=== PATIENT | female | born 1985 | race Hispanic/Latino ===

== ENCOUNTER 2023-08-31 06:23 | Day surgery (SDC) | payer OTHER ==
[2023-08-29 13:02] LABS: BASOPHILS # (AUTO) 0.09 K/uL (0.00-0.20); BASOPHILS % (AUTO) 1.1 % (0.0-5.0); EOSINOPHILS # (AUTO) 0.21 K/uL (0.00-0.70); EOSINOPHILS % (AUTO) 2.6 % (0.0-8.0); HEMATOCRIT 38.9 % (36-48); IMMATURE GRANULOCYTE ABSOLUTE 0.02 K/uL (0-1); LYMPHOCYTES # (AUTO) 1.6 K/uL (1.0-4.8); LYMPHOCYTES % (AUTO) 19.3 % (21.0-51.0); MEAN CORPUSCULAR HEMOGLOBIN 28.2 pg (27.0-33.0); MEAN CORPUSCULAR HGB CONC 32.6 g/dL (32.0-36.0); MEAN CORPUSCULAR VOLUME 86.3 fL (79-99); MONOCYTES # (AUTO) 0.6 K/uL (0.1-1.0); MONOCYTES % (AUTO) 7.2 % (3.0-13.0); NEUTROPHILS # (AUTO) 5.7 K/uL (1.8-7.7); NEUTROPHILS % (AUTO) 69.6 % (40.0-77.0); PLATELET COUNT (AUTO) 280 K/uL (130-400); RED BLOOD CELL COUNT(AUTO) 4.51 MIL/uL (4.00-5.50); RED CELL DISTRIBUTION WIDTH 12.5 % (11.0-15.5); WHITE BLOOD COUNT (AUTO) 8.2 K/uL (4.8-10.8)
[2023-08-29 13:18] LABS: ALBUMIN 3.3 g/dL (3.5-5.0); BILIRUBIN,DIRECT 0.1 mg/dL (0.0-0.3); BILIRUBIN,TOTAL 0.3 mg/dL (0.2-1.0); CREATININE 0.7 mg/dL (0.5-1.0); POTASSIUM 4.3 mmol/L (3.5-5.1)
[2023-08-29 13:38] VITALS: BP 142/90; PULSE 81; RESP 16
[~2023-08-31] VITALS: Ht 177.8 cm; Wt 117.1 kg
[2023-08-31] VITALS (16 sets, daily range): BP systolic 116–138; BP diastolic 69–83; PULSE 61–95; RESP 15–20
[~2023-08-31 06:23] MED LIST: CETI10TA57 PO; FERR-82 PO; VITAD50000 PO; [UNRECOGNIZED DRUG - REMARK] PO
[2023-08-31] MEDS: LACTATED RINGERS 1000ML 1,000 ML IV ONE (07:08)
[2023-08-31] MEDS ORDERED: FAMOTIDINE 20MG VIAL IV ONE (07:25)
[2023-08-31] MEDS ORDERED: GLYCOPYRROLATE 0.2 MG/ML 5 ML VIAL ONE (07:27)
[2023-08-31] MEDS ORDERED: ONDANSETRON 4MG INJ ONE ×2 (07:27→08:21)
[2023-08-31] MEDS ORDERED: PHENYLEPHRINE HCL 10 MG/ML 1ML VIAL IV ONE (07:27)
[2023-08-31] MEDS ORDERED: ROCURONIUM BROMIDE 10MG/1ML 5ML VL ONE (07:27)
[2023-08-31] MEDS ORDERED: LIDOCAINE PF 100MG/5ML (2%) SYRINGE 5ML ONE ×2 (07:27→07:34)
[2023-08-31] MEDS ORDERED: PROPOFOL 10 MG/ML 20ML VIAL IV ONE (07:27)
[2023-08-31] MEDS ORDERED: FENTANYL CITRATE PF 50 MCG/1 ML 5ML AMP IV ONE (07:28)
[2023-08-31] MEDS ORDERED: MIDAZOLAM HCL 1 MG/ML 2ML VIAL ONE (07:34)
[2023-08-31] MEDS: ONDANSETRON 4MG INJ ONE (09:13)
[2023-08-31] MEDS: MEPERIDINE-PF 25 MG/ML SYG ONE (09:14)
== END 2023-08-31 10:35 | disposition home or self-care (01) ==
LOC: DAH 06:23
PROVIDERS: ATTEND Obstetrics & Gynecology
DX: Z30.433 Encounter for removal and reinsertion of intrauterine contraceptive device (principal); N93.8 Other specified abnormal uterine and vaginal bleeding; N84.0 Polyp of corpus uteri; D25.9 Leiomyoma of uterus, unspecified; F41.9 Anxiety disorder, unspecified; Z79.899 Other long term (current) drug therapy; Z82.49 Family history of ischemic heart disease and other diseases of the circulatory system; Z83.3 Family history of diabetes mellitus; Z80.6 Family history of leukemia; Z98.890 Other specified postprocedural states
CPT/HCPCS: 80076; 80048; 84703; 85025; 36415; 58301; 58300; 58558; 88305; A4663; J7120 ×2; A4351; A4355; J3490 ×3; J3010; J2001 ×2; J2250; J2704; J2405 ×3; J2175; J2371; A4649; A4215; A4223; A4222; A4221; A4335

== ENCOUNTER 2024-02-28 12:24 | Inpatient (IN) | payer SELFPAY ==
[~2024-02-28] VITALS: Ht 177.8 cm; Wt 120.3 kg
[2024-02-28 13:11] LABS: BASOPHILS # (AUTO) 0.04 K/uL (0.00-0.20); BASOPHILS % (AUTO) 0.5 % (0.0-5.0); EOSINOPHILS # (AUTO) 0.16 K/uL (0.00-0.70); IMMATURE GRANULOCYTE ABSOLUTE 0.08 K/uL (0-1); LYMPHOCYTES # (AUTO) 1.1 K/uL (1.0-4.8); LYMPHOCYTES % (AUTO) 13.4 % (21.0-51.0); MEAN CORPUSCULAR HEMOGLOBIN 30.6 pg (27.0-33.0); MEAN CORPUSCULAR HGB CONC 29.2 g/dL (32.0-36.0); MEAN CORPUSCULAR VOLUME 104.8 fL (79-99); MONOCYTES # (AUTO) 0.5 K/uL (0.1-1.0); MONOCYTES % (AUTO) 5.6 % (3.0-13.0); NEUTROPHILS # (AUTO) 6.2 K/uL (1.8-7.7); NEUTROPHILS % (AUTO) 77.5 % (40.0-77.0); NUCLEATED RED BLOOD CELLS 0.4 % (0.0-0.19); PLATELET COUNT (AUTO) 251 K/uL (130-400); RED BLOOD CELL COUNT(AUTO) 1.86 MIL/uL (4.00-5.50); RED CELL DISTRIBUTION WIDTH 19.8 % (11.0-15.5); WHITE BLOOD COUNT (AUTO) 8.1 K/uL (4.8-10.8)
[2024-02-28 13:19] LABS: CREATININE 0.6 mg/dL (0.5-1.0); POTASSIUM 4.4 mmol/L (3.5-5.1)
[2024-02-28 13:20] LABS: HEMATOCRIT 19.5 % (36-48)
--- NOTE | 2024-02-28 15:04 | ERN ---
General Chief Complaint: Abnormal Labs Stated Complaint: LOW HH Time Seen by MD: 12:28 Time Seen by Midlevel: 12:28 Source: patient History of Present Illness Initial Comments Patient is a 38-year-old female with a past medical history of menorrhagia and adenomyosis presenting to the emergency department with abnormal labs. Patient was called by her primary care doctor after her blood work results came back and showed a hemoglobin in the 5.2. Patient states she has been having vaginal bleeding for the last four weeks. She states that this is common for her given her history. She had a D&C done in the past by Dr. Salguero to try and control her symptoms however that did not improve any of her symptoms. She has a hysterectomy scheduled for March 28, [address] Salguero. Today she reports some mild generalized body weakness and fatigue but denies any chest pain, shortness for breath, palpitations, or any other symptoms at this time. Allergies: Coded Allergies: No Known Drug Allergies (Unverified Allergy, Unknown, 08/29/23) Home Meds Reported Medications Ferrous Sulfate (Iron) 325 Mg (65 Mg Iron) Tablet, 325 MG PO DAILY, TAB 08/29/23 Cholecalciferol (Vitamin D3) 1,250 Mcg (75052 Unit) Cap, 84166 UNITS PO MONDAYS, CAP 08/29/23 [Severe Channing/Cough] No Conflict Check, 20 ML PO AD PRN for COUGH 08/29/23 Cetirizine HCl (Cetirizine HCl) 10 Mg Tablet, 10 MG PO AM, TAB 08/29/23 Past Medical History Past Medical History: No Pertinent History Past Surgical History: Other Surgical History Other: D&C Female( History) LMP: Feb 05, 2024 : 0 Para: 0 ROS Dictation CONSTITUTIONAL: Negative except for HPI HEAD/FACE: Negative except for HPI EENT: Negative except for HPI RESPIRATORY: Negative except for HPI GASTROINTESTINAL/ABDOMINAL: Negative except for HPI GENITOURINARY: Negative except for HPI MUSCULOSKELETAL: Negative except for HPI INTEGUMENTARY: Negative except for HPI NEUROLOGICAL/PSYCH: Negative except for HPI HEMATOLOGIC/LYMPHATIC: Negative except for HPI All Systems Negative, Except as noted above. 13 point review of systems assessed and all negative except for above. Physical Exam Physical Exam Dictation Vital Signs reviewed General Appearance: Alert, oriented x 3, no acute distress, well developed, nourished. Head and Face: non-traumatic. Eyes: PERRL, pink conjunctivas, eyelid no trauma, anterior chamber with arcus senilis. Ears: Pinnas intact and no signs of trauma or erythema ear canals clear and no discharge TM no erythema Nose: No discharge, no bleeding. Oropharynx: Mouth normal, tongue pink, pharynx clear,no erythema, tonsils no exudates, no abscesses noted, mucous membrane moist Neck: Supple, non-tender, no thyromegaly, no masses, no JVD, no bruits Breast:Deferred Chest:No tenderness, no crepitus, no paradoxical movement, no retractions Lungs:Clear, well-ventilated, symmetric, no rales, no wheezing, no rhonchi, no stridor, good breath sounds bilaterally Heart: Regular rate, regular rhythm, no murmur, no gallops Vascular: no peripheral edema, Abdomen: Soft, positive bowel sounds, nondistended, no guarding, nontender, no rebound, no masses no hepatomegaly, no splenomegaly, no Lynn's sign, no hernias. Rectal: Deferred Genital: Deferred Neurological: Normal speech, motor function intact, sensory function intact Musculoskeletal: Neck nontender, full range of motion, back nontender, full range of motion, Extremities: nontender, full range of motion Skin: Color pink, dry, no turgor, no rash, no lacerations, no abrasions, no contusions. Lymphatic: Deferred Results Laboratory and Microbiology Lab and Micro Result Laboratory Tests Test 02/28/24 13:02 White Blood Count 8.1 K/uL (4.8-10.8) Red Blood Count 1.86 MIL/uL (4.00-5.50) L Hemoglobin 5.7 g/dL (12.0-16.0) *L Hematocrit 19.5 % (36-48) *L Mean Corpuscular Volume 104.8 fL (79-99) H Mean Corpuscular Hemoglobin 30.6 pg (27.0-33.0) Mean Corpuscular Hemoglobin Concent 29.2 g/dL (32.0-36.0) L Red Cell Distribution Width 19.8 % (11.0-15.5) H Platelet Count 251 K/uL (130-400) Mean Platelet Volume 10.3 fL (7.5-10.5) Immature Granulocyte % (Auto) 1.0 % (0-1) Neutrophils (%) (Auto) 77.5 % (40.0-77.0) H Lymphocytes (%) (Auto) 13.4 % (21.0-51.0) L Monocytes (%) (Auto) 5.6 % (3.0-13.0) Eosinophils (%) (Auto) 2.0 % (0.0-8.0) Basophils (%) (Auto) 0.5 % (0.0-5.0) Neutrophils # (Auto) 6.2 K/uL (1.8-7.7) Lymphocytes # (Auto) 1.1 K/uL (1.0-4.8) Monocytes # (Auto) 0.5 K/uL (0.1-1.0) Eosinophils # (Auto) 0.16 K/uL (0.00-0.70) Basophils # (Auto) 0.04 K/uL (0.00-0.20) Absolute Immature Granulocyte (auto 0.08 K/uL (0-1) Nucleated Red Blood Cells 0.4 % (0.0-0.19) H Red Blood Cell Morphology See comments Sodium Level 145 mmol/L (136-145) Potassium Level 4.4 mmol/L (3.5-5.1) Chloride Level 114 mmol/L (101-111) H Carbon Dioxide Level 23 mmol/L (21-32) Blood Urea Nitrogen 7 mg/dL (7-18) Creatinine 0.6 mg/dL (0.5-1.0) Glomerular Filtration Rate Calc 119 mL/min (>90) Random Glucose 101 mg/dL (70-105) Total Calcium 8.1 mg/dL (8.5-10.1) L Serum Test, Qualitative NEGATIVE (NEGATIVE) Labs Reviewed?: Yes MDM MDM: Patient is a 38-year-old female with a past medical history of menorrhagia and adenomyosis presenting to the emergency department with abnormal labs. Patient was called by her primary care doctor after her blood work results came back and showed a hemoglobin in the 5.2. Patient states she has been having vaginal bleeding for the last four weeks. She states that this is common for her given her history. She had a D&C done in the past by Dr. Salguero to try and control her symptoms however that did not improve any of her symptoms. She has a hysterectomy scheduled for March 28, [address] Salguero. Today she reports some mild generalized body weakness and fatigue but denies any chest pain, shortness for breath, palpitations, or any other symptoms at this time. On physical examination patient is neurologically intact. She has a GCS of 15. She was able to ambulate from the triage area into the examination room with no difficulties. Her CBC shows a hemoglobin of 5.7. Her chemistries are stable. Patient will be transfused2 units of blood and will be admitted for further observation and management. The case was discussed with the hospitalist on-call who agrees to admit the patient for further observation and management. Differential diagnosis: Severe anemia, electrolyte abnormality, dehydration, dysfunctional uterine bleeding Rationale: Tests considered and ordered secondary to shared decision making include: Previous outside records reviewed: Old ER visits. Risk of complication and/or morbidity or mortality of patient management: None Medications-Per medication reconciliation Need for hospitalization: Patient does meet criteria for hospitalization. Need for emergency major/minor surgery: No There are no social concerns with this patient. Prescription drug management Prescriptions will include symptomatic care Patient's prior external medical records from other ER visits were reviewed by me as indicated. Prior testing and results from previous visits were reviewed. Prior tests were taken into account with medical decision making and resource utilization, independent historian/historians were used to obtain complete medical history. I independently interpreted the test that were performed, results were reviewed by me and considered findings on radiology if ordered. Medical management and examination interpretation discussions were had by me with other qualified healthcare professionals as indicated for the patient's care. ED Course Orders Procedure Category Date Status Time Vital Signs Per CPOE 02/28/24 Transmitted Routine 12: Cbc With Differential LAB 02/28/24 Complete 12: Testing, LAB 02/28/24 Complete Serum Hcg 12: Type And Screen BBK 02/28/24 In Process 12:29 Iv Insertion CPOE 02/28/24 Transmitted 12:29 Basic Metabolic Panel LAB 02/28/24 Complete 12: Rbc-Active Bleeding BBK 02/28/24 In Process 13:41 Obstetrical Consult CONPHYSVC 02/28/24 Transmitted 14:55 Vital Signs Date Time Temp Pulse Resp B/P (MAP) Pulse Ox O2 Delivery O2 Flow Rate FiO2 02/28/24 14:29 98.4 98 18 119/72 100 Room Air* 0 21 02/28/24 14:01 98.4 89 18 139/78 97 Room Air* 0 21 02/28/24 12:25 98.8 105 20 146/86 99 Room Air 0 DX & DISP Disposition: Inpatient Decision to Admit Date: Feb 28, 2024 Departure Impression: Primary Impression: Severe anemia Additional Impression: Abnormal uterine bleeding due to adenomyosis Condition: Stable Referrals: [facility]IERRE[facility] (PCP) I have reviewed the case, and I agree with, Diagnosis and Plan I performed the substantive portion of the visit. I have reviewed and personally made and approve the management plan that is documented in the note by myself or the [facility]. I acknowledge for responsibility for the patient's management plan. RAIMUNDO CEDEÑO Feb 28, 2024 15:04
--- NOTE | 2024-02-28 15:05 | NUR ---
BLOOD TRANSFUSION INTIATED AT THIS TIME UNIT #1 OF 2.
--- NOTE | 2024-02-28 15:45 | HP ---
[facility] HISTORY AND PHYSICAL Date of Service: Feb 28, 2024 Time of Service: 15:38 PCP:Regino Nixon ART FRAMING MANAGER Admitting: Dr Treviño, Allergies: No Allergy Information Available, No Known Drug Allergies HISTORY OF PRESENT ILLNESS: [ Patient is 38 years old female with a past medical history of menorrhagia and adenomyosis who came to emergency department with abnormal labs from her PCP office. Patient stated that for the past four weeks she has been having very heavy vaginal bleed and she decided to go to her PCP yesterday were the labs were taken. Today in the morning when patient called in to PCP's office she was told that her hemoglobin was very low and they either recommend for her to go to emergency department for blood transfusion/evaluation ortho come to the office to start the iron infusion. Patient stated that since she has been having trouble breathing and she feels very dizzy and weak she decided to come to emergency department. At the emergency department patient's hemoglobin was 5.2 she will receive 2 units of PRBC She had a D&C done in the past by Dr. Salguero to try and control her symptoms however that did not improve any of her symptoms. She has a hysterectomy scheduled for March 28, [address] Salguero. Patient is also scheduled for hysterectomy March 28, 2024. Patient will be admitted under hospitalist care for further evaluation. OBGYN was consulted.] REVIEW OF SYSTEMS CONSTITUTIONAL: Denies fevers, chills, or night sweats. No unintentional weight loss reported. NEUROLOGICAL: Denies headache, amaurosis fugax, motor weakness, sensory de ficit, vertigo/spinning sensation, gait abnormalities, or tremors. ENT: No hearing loss, otalgia, otorrhea, rhinitis, rhinorrhea, hoarseness, or sore throat. CARDIOVASCULAR: Denies any exertional angina, dyspnea on exertion, orthopnea, paroxysmal nocturnal dyspnea, palpitations, life-threatening arrhythmias, claudication. PULMONARY: Denies any shortness of breath, cough, phlegm/sputum, hemoptysis, pleuritic chest pain. SLEEP: Denies morning headaches, daytime somnolence or napping. Denies difficulty falling asleep, staying asleep, waking from sleep. Denies knowledge of snoring. GASTROINTESTINAL: Denies any type of dysphagia to either liquids or solids. Denies nausea, vomiting, pyrosis, early satiety, abdominal pain, diarrhea, constipation, or changes in stool consistency or caliber. Denies coffee-ground emesis, hematemesis, hematochezia, or melanotic stools. GENITOURINARY: Denies frequency, urgency, nocturia, hematuria or incontinence (Storage/Irritative symptoms.) Low urinary stream, straining to void, urinary intermittency or hesitancy, splitting of the voiding stream, terminal dribbling. ENDOCRINOLOGIC: Denies polyuria, polydipsia, polyphagia or heat/cold intolerances. HEMATOLOGIC: Denies thrombophilia/previous clots, or coagulopathy/bleeding disorders. ONCOLOGIC: Denies personal history of malignancy. DERMATOLOGIC: Denies rashes or pruritus. PSYCHIATRIC: Denies any suicidal or homicidal ideation. Denies hallucinations. PAST MEDICAL HISTORY: [ menorrhagia and adenomyosis] PAST SURGICAL HISTORY: [ D&C August 2023] PAST SOCIAL HISTORY: [ Denies smoking. Denies alcohol use. Denies drug illicit ] FAMILY HISTORY: [ Patient lives at home with her parents. ] Coded Allergies: No Known Drug Allergies (Unverified Allergy, Unknown, 08/29/23) PHYSICAL EXAM GENERAL APPEARANCE: The patient is awake, alert, and oriented, in no acute cardiopulmonary distress. NEUROLOGICAL: Cranial nerves II-XII grossly intact. Motor is 5/5 in bilateral upper and lower extremities proximal to distal. No sensory deficits. HEENT: Face is symmetric. Pupils are equal and reactive. Extraocular movements are intact. NECK: Supple. No JVD. No thyromegaly. No submental, submandibular, pre-/postau ricular, occipital or supraclavicular lymphadenopathy. CHEST: Normal chest expansion. No Telemetry. LUNGS: Absence of any rales, rhonchi or any wheezing. CARDIOVASCULAR: Regular. S1 and S2 normal. No appreciable rubs, murmurs or gallops. ABDOMEN: Soft, nontender, and nondistended. There is no rebound, voluntary guarding, or rigidity. : Deferred. No Fonseca. EXTREMITIES: Non-edematous and not cyanotic. No clubbing. Good capillary refill. SKIN: No skin breakdown. Vital Sign (Last 24 Hours) 02/28/24 14:29 Temp 98.4 Pulse 98 Resp 18 B/P (MAP) 119/72 Pulse Ox 100 O2 Delivery Room Air* O2 Flow Rate 0 FiO2 21 LABS: Laboratory: Test 02/28/24 13:02 Range/Units White Blood Count 8.1 4.8-10.8 K/uL Red Blood Count 1.86 L 4.00-5.50 MIL/uL Hemoglobin 5.7 *L 12.0-16.0 g/dL Hematocrit 19.5 *L 36-48 % Mean Corpuscular Volume 104.8 H 79-99 fL Mean Corpuscular Hemoglobin 30.6 27.0-33.0 pg Mean Corpuscular Hemoglobin Concent 29.2 L 32.0-36.0 g/dL Red Cell Distribution Width 19.8 H 11.0-15.5 % Platelet Count 251 130-400 K/uL Mean Platelet Volume 10.3 7.5-10.5 fL Immature Granulocyte % (Auto) 1.0 0-1 % Neutrophils (%) (Auto) 77.5 H 40.0-77.0 % Lymphocytes (%) (Auto) 13.4 L 21.0-51.0 % Monocytes (%) (Auto) 5.6 3.0-13.0 % Eosinophils (%) (Auto) 2.0 0.0-8.0 % Basophils (%) (Auto) 0.5 0.0-5.0 % Neutrophils # (Auto) 6.2 1.8-7.7 K/uL Lymphocytes # (Auto) 1.1 1.0-4.8 K/uL Monocytes # (Auto) 0.5 0.1-1.0 K/uL Eosinophils # (Auto) 0.16 0.00-0.70 K/uL Basophils # (Auto) 0.04 0.00-0.20 K/uL Absolute Immature Granulocyte (auto 0.08 0-1 K/uL Nucleated Red Blood Cells 0.4 H 0.0-0.19 % Red Blood Cell Morphology See comments Sodium Level 145 136-145 mmol/L Potassium Level 4.4 3.5-5.1 mmol/L Chloride Level 114 H 101-111 mmol/L Carbon Dioxide Level 23 21-32 mmol/L Blood Urea Nitrogen 7 7-18 mg/dL Creatinine 0.6 0.5-1.0 mg/dL Glomerular Filtration Rate Calc 119 >90 mL/min Random Glucose 101 70-105 mg/dL Total Calcium 8.1 L 8.5-10.1 mg/dL Serum Test, Qualitative NEGATIVE NEGATIVE Current Medications Medications (Trade) Dose Ordered Sig/Lawrence Route PRN Reason Start Time Stop Time Status Last Admin Dose Admin Dextrose (D50w) 50 ml AD PRN IV HYPOGLYCEMIA PROTOCOL 02/28/24 16:00 03/29/24 15:59 UNV Glucagon (Glucagon 1mg Kit) 1 mg AD PRN IM HYPOGLYCEMIA PROTOCOL 02/28/24 16:00 03/29/24 15:59 UNV Insulin Human Regular (humuLIN R 100 UNIT/ML 3ML) INSULIN SLIDING SCAL... ACHS SQ 02/28/24 16:30 03/29/24 16:29 UNV Magnesium Sulfate 50 ml @ 0 mls/hr PROTOCOL PRN IV othere 02/28/24 16:00 03/29/24 15:59 UNV Potassium Chloride 100 ml @ 100 mls/hr AD PRN IV POTASSIUM PROTOCOL 02/28/24 16:00 03/29/24 15:59 UNV Potassium Chloride (K-Dur/Klor-Con 20meq) 10 meq AD PRN PO POTASSIUM PROTOCOL 02/28/24 16:00 03/29/24 15:59 UNV Potassium Chloride (KCl 10% Elixir 20meq/15ml) 10 meq AD PRN PO POTASSIUM PROTOCOL 02/28/24 16:00 03/29/24 15:59 UNV DIAGNOSTICS / RADIOLOGY: [ ] ASSESSMENT: [ Acute blood loss due to heavy menstruation bleed requiring two PRBC transfusion POA Multifactorial anemia due to above POA Electrolyte imbalance hyperchloremia 114 hypocalcemia menorrhagia POA adenomyosis POA Uncontrolled hypertension POA] PLAN: [ Admit to: Medical-surgical Consults: OBGYN Antibiotics: None IV fluids normal saline 100 mL/hour NEURO: Minimize central acting medications as possible. Fall Precautions. Well lighted room through the day and minimize interruptions through the night to prevent acute delirium. PULMONARY: Supplemental 02 as needed BiPAP as necessary, for respiratory distress Titrate Fio2 to keep Spo2 > or = 90% DuoNebs and CPT as needed IS hourly while awake for pulmonary hygiene Out of bed to chair as tolerated VAP Bundle Maintain aspiration precautions at all times CARDIOVASCULAR: Follow hemodynamics. Vital signs per facility protocol GI & NUTRITION: Continue nutritional support Aspirations precautions Prokinetic agents and laxatives as needed KIDNEYS & ELECTROLYTES: Strict monitoring of intake and output Daily weights Avoid nephrotoxic agents Monitor electrolytes and replace as needed Goal urine output of 30mL/hr or 0.5mL/kg/hr Medications to be dosed according to renal function. Avoid contrast if possible ENDOCRINE: Maintain blood glucose between 100-180 at all times. Insulin sliding scale for blood glucose management Hypoglycemia and hyperglycemia protocol in place INFECTIOUS DISEASE: Trend temperature, WBC and procalcitonin level Follow cultures, deescalate antibiotics as soon as possible. Panculture if new onset fever HEMATOLOGY & COAGULATION: Monitor H&H. Keep Hgb > 7 Transfuse 1 unit of PRBC for Hgb < 7 Transfuse 1 pack of platelets of platelets < 20, 000 Watch for any signs and symptoms of bleeding SKIN: Pressure ulcer prevention per facility protocol Specialty mattress as needed Treatment plan discussed with patient and family at the bedside Medications to be reconciled once obtained by patient and/or family and available to be reconciled in computer p.r.n. medication for pain nausea and vomiting Questions were answered We will continue to monitor the patient closely Marketing Underwriter for disposition Rehab: PT/OT GI: PPI DVT: SCD's Code Status: Full Resuscitation Disposition: TBD Prognosis: Guarded ] ADVANCED CARE PLANNING 1. Which of the following were discussed? Hospice Care - Yes / No Therapeutic options - Yes / No Advance Directives - Yes / No Other discussions - 2. Discussed with who? Patient and family member at the bedside 3. Voluntary nature of this service was explained to the patient? Yes / No 4. Amount of time spent - _ more than 35 minutes 5. Reviewed by Physician? (if this service was performed by NPP) Yes / No Patient seen and examined by me. Agree with note by ART FRAMING MANAGER SEE ADDITIONAL ORDERS PER CHART DISCUSSED WITH NURSING STAFF STEVE ROCKP Feb 28, 2024 15:45
[2024-02-28] MEDS ORDERED: DEXTROSE 50%-WATER 50 ML DISP.SYRIN IV PRN (16:00)
[2024-02-28] MEDS ORDERED: PoTASSium chl 10% ELIXIR 20MEQ 20 MEQ/15 ML UDCUP PO PRN (16:00)
[2024-02-28] MEDS ORDERED: ZOLPidem TARTrate 5 MG TAB PO PRN (16:00)
[2024-02-28] MEDS ORDERED: MAGNESIUM 2GM PREMIX 50ML 50 ML IV PRN (16:00)
[2024-02-28] MEDS ORDERED: GLUCAGON 1MG KIT 1 MG ML IM PRN (16:00)
[2024-02-28] MEDS ORDERED: hydrALAZine 20MG/ML VIAL IV PRN (16:00)
[2024-02-28] MEDS ORDERED: DiphenhydrAMINE HCL 50 MG/ML VIAL IV PRN (16:00)
[2024-02-28] MEDS ORDERED: guaiFENesin-DM 200/20MG 10ML PO PRN (16:00)
[2024-02-28] MEDS ORDERED: PoTASSium chloRIDE 20MEQ ER 20 MEQ ERTAB PO PRN (16:00)
[2024-02-28] MEDS ORDERED: MAG/ALUM/SIMETH 30 ML UDCUP PO PRN (16:00)
[2024-02-28] MEDS ORDERED: FAMOTIDINE 20MG VIAL IV PRN (16:00)
[2024-02-28] MEDS ORDERED: acetaMINOPHEN 325 MG TAB PO PRN ×3 (16:00)
[2024-02-28] MEDS ORDERED: LACTULOSE 20 GM/30 ML UDCUP PO PRN (16:00)
[2024-02-28] MEDS ORDERED: ondanSETRON 4MG INJ IV PRN (16:00)
[2024-02-28] MEDS ORDERED: ketOROlac 15MG/ML VIAL (15MG/ML) IV PRN (16:00)
[2024-02-28] MEDS ORDERED: NITROGLYCERIN 0.4 MG SL TAB SL PRN (16:00)
[2024-02-28] MEDS ORDERED: PoTASSium chloRIDE 10MEQ/100ML 100 ML IV PRN (16:00)
[2024-02-28] MEDS: INSULIN humuLIN R 100 UNIT/ML 3ML SQ SCH (16:30)
--- NOTE | 2024-02-28 16:42 | NUR ---
1ST UNIT OF RBC COMPLETED AT THIS TIME.
[2024-02-28] MEDS: 0.9%NACL 1000ML 1,000 ML IV SCH (16:48)
[2024-02-28 17:33] LABS: % IRON SATURATION 24.7 % (22-44)
--- NOTE | 2024-02-28 18:15 | NUR ---
2ND UNIT OF RBC TRANFUSION INTITATED AT THIS TIME.
[2024-02-28] MEDS: FAMOTIDINE 20MG VIAL IV SCH (21:17)
[2024-02-28] MEDS ORDERED: IBUP-2784 PO (23:46)
[2024-02-28] MEDS ORDERED: NORE5TAB7 PO (23:46)
[2024-02-28] MEDS ORDERED: RELU1TAB PO (23:46)
--- NOTE | 2024-02-28 23:51 | NUR ---
REPORT GIVEN TO NURSE GOODE, ALL QUESTIONS ANSWERED AT THIS TIME. NURSE EXPECTING PT ARRIVAL TO UNIT.
[2024-02-29] VITALS: O2SAT 98
--- NOTE | 2024-02-29 00:01 | NUR ---
patient arrived via stretcher, [id number], iv patent, voiced no concerns at this time
[2024-02-29 00:04] VITALS: BP 168/78; PULSE 99; RESP 18; TEMP 98.8
[2024-02-29 04:00] VITALS: BP 122/69; PULSE 86; RESP 17; TEMP 98.6
[2024-02-29 04:24] LABS: BASOPHILS # (AUTO) 0.05 K/uL (0.00-0.20); BASOPHILS % (AUTO) 0.5 % (0.0-5.0); EOSINOPHILS # (AUTO) 0.29 K/uL (0.00-0.70); EOSINOPHILS % (AUTO) 3.2 % (0.0-8.0); HEMATOCRIT 23.7 % (36-48); IMMATURE GRANULOCYTE ABSOLUTE 0.05 K/uL (0-1); LYMPHOCYTES # (AUTO) 1.7 K/uL (1.0-4.8); LYMPHOCYTES % (AUTO) 18.4 % (21.0-51.0); MEAN CORPUSCULAR HEMOGLOBIN 30.7 pg (27.0-33.0); MEAN CORPUSCULAR HGB CONC 30.8 g/dL (32.0-36.0); MEAN CORPUSCULAR VOLUME 99.6 fL (79-99); MONOCYTES # (AUTO) 0.5 K/uL (0.1-1.0); MONOCYTES % (AUTO) 5.3 % (3.0-13.0); NEUTROPHILS # (AUTO) 6.6 K/uL (1.8-7.7); NEUTROPHILS % (AUTO) 72.1 % (40.0-77.0); NUCLEATED RED BLOOD CELLS 0.2 % (0.0-0.19); PLATELET COUNT (AUTO) 229 K/uL (130-400); RED BLOOD CELL COUNT(AUTO) 2.38 MIL/uL (4.00-5.50); RED CELL DISTRIBUTION WIDTH 19.6 % (11.0-15.5); WHITE BLOOD COUNT (AUTO) 9.1 K/uL (4.8-10.8)
[2024-02-29 04:39] LABS: ALANINE AMINOTRANSFERASE 35 U/L (12-78); ALBUMIN 2.6 g/dL (3.5-5.0); ASPARTATE AMINOTRANSFERASE 15 U/L (10-37); BILIRUBIN,DIRECT < 0.1 mg/dL (0.0-0.3); BILIRUBIN,TOTAL 0.2 mg/dL (0.2-1.0); CARBON DIOXIDE 21 mmol/L (21-32); CHLORIDE 113 mmol/L (101-111); CREATINE KINASE, TOTAL 70 U/L (21-232); CREATININE 0.7 mg/dL (0.5-1.0); GLOMERULAR FILTR. RATE CALC 115 mL/min (>90); GLUCOSE,RANDOM 87 mg/dL (70-105); POTASSIUM 4.3 mmol/L (3.5-5.1); SODIUM SERUM 145 mmol/L (136-145); TOTAL PROTEIN, SERUM 5.8 g/dL (6.0-8.3); UREA NITROGEN, BLOOD 7 mg/dL (7-18)
--- NOTE | 2024-02-29 05:19 | NUR ---
PATIENT REPORTS HAVING PASSED MULTIPLE BLOOD CLOTS,VAGINALLY
[2024-02-29 05:20] LABS: HEMOGLOBIN A1C 4.7 % (4.0-6.0)
--- NOTE | 2024-02-29 08:20 | NUR ---
WRITTEN ORDER: PER WRITTEN ORDER ON A BLANK SHEET OF PRINTING PAPER, PT WILL RECEIVE PRBC'S X1 UNIT THEN CHECK CMP, CBC & MAG IN TWO HOURS, ALSO RESTART HOME MEDS LISTED IN CHART: NORETHINDRONE & RELUGOLIX/ESTRADIOL/NORETHINDRONE COMBINATION. MD ALSO ORDER TO CALL & INFORM WITH ANY ISSUES, PH NOTED IN CHART.
[2024-02-29 08:31] VITALS: BP 121/60; PULSE 84; RESP 19; TEMP 99.3
[2024-02-29] MEDS: NORETHINDRONE ACETATE PO SCH (09:00)
--- NOTE | 2024-02-29 09:50 | NUR ---
AM MEDS: AM HOME MEDICATIONS ADMINISTER, PT TOLERATED WELL PROCEDURE. ALSO ADMINISTER PRBCS PER MD ORDER PT TOLERATED WELL PROCEDURE. NO S/S OF INFECTION. WILL REMOVE IV ON RIGHT HAND DUE TO IV LEAKING, AND PT WILL BE DISCHARGE TODAY.
--- NOTE | 2024-02-29 10:24 | CONS ---
CONSULT NOTE: DATE: February CONSULTATION NOTE GYNECOLOGY THIS IS A 38 YEAR OLD FEMALE WITH MENORRHAGIA TO ANEMIA WHO HAD HAD CHRONIC BLEEDING AND WAS FOUND TO HAVE A HEMOGLOBIN OF ABOUT 5.5. SHE WAS OFFERED IN OFFICE VENOFER INFUSION AND SHE DECIDED TO GO TO THE ER. SHE WAS ADMITTED AND TRANSFUSED TWO UNITS OF BLOOD, SHE HAD SOME MODERATELY HEAVY BLEEDING OVERNIGHT. SHE WAS NOT GIVEN HER HOME MEDS OF NORETHINDRONE 5 MG THREE TABS OR THE MYFEMBREE SHE HAD BEEN PRESCRIBED. THIS MORNING SHE SAYS SHE HAS LESS BLEEDING AND HER HB IS ABOUT 7.4. PMH; BONE MARROW DONOR AND PER THE CHART [facility] NONCONTRIBUTORY MEDICATIONS IRON, VITAMIN C, NORETHINDRONE, MYFEMBREE ALLERGIES SEE THE CHART PEX VITALS PER THE CHART GENERAL SHE IS ALERT AND ORIENTED SITTING UP IN THE BED REMAINDER OF EXAM IS DEFERRED ASSESSMENT: KNOWN PATIENT WITH CHRONIC MENORRHAGIA JUST HAVING STARTED MYFEMBREE AND CONTINUING TO USE NORETHINDRONE. RECOMMEND ONE ADDITIONAL UNIT OF RED BLOOD CELLS SINCE THE PATIENT HAS NOT COMPLETELY STOPPED BLEEDING. RECOMMEND STAT DOSAGE OFTHE MEDICATIONS SHE MISSED YESTERDAY. ONCE SHE HAS HAD HER TRANSFUSION AND A REPEAT CBC, SO LONG SHE IS NOT BLEEDING HEAVILY SHE CAN BE DISMISSED TO HOME TO FOLLOW UP WITH ME LATER IN THE WEEK, SHE IS TO CONTINUE NORETHINDRONE 5 MG THREE PER DAY AND MYFEMBREE ONCE PER DAY. I HAVE DISCUSSED THIS PLAN WITH THE PATIENT AND SHE IS IN AGREEMENT. CHRISTO MACHADO MD, MD Feb 29, 2024 10:24
--- NOTE | 2024-02-29 10:55 | PN ---
[facility] PROGRESS NOTE Date of Service: Feb 29, 2024 Time of Service: 10:[address] Treviño SUBJECTIVE: [ 02/27 Patient is 38 years old female with a past medical history of menorrhagia and adenomyosis who came to emergency department with abnormal labs from her PCP office. Patient stated that for the past four weeks she has been having very heavy vaginal bleed and she decided to go to her PCP yesterday were the labs were taken. Today in the morning when patient called in to PCP's office she was told that her hemoglobin was very low and they either recommend for her to go to emergency department for blood transfusion/evaluation ortho come to the office to start the iron infusion. Patient stated that since she has been having trouble breathing and she feels very dizzy and weak she decided to come to emergency department. At the emergency department patient's hemoglobin was 5.2 she will receive 2 units of PRBC She had a D&C done in the past by Dr. Salguero to try and control her symptoms however that did not improve any of her symptoms. She has a hysterectomy scheduled for March 28, [address] Salguero. Patient is also scheduled for hysterectomy March 28, 2024. Patient will be admitted under hospitalist care for further evaluation. OBGYN was consulted. 02/28 patient was seen by nurse practitioner and physician during rounding in room 313 comfortably lying in the bed. Patient was evaluated by OBGYN and at this moment they recommended one PRBC and also to start patient on NORETHINDRONE 5 MG THREE PER DAY AND MYFEMBREE ONCE PER DAY. As long as the patient will not be bleeding heavily she can be dismissed to go home and follow-up with OBGYN later in the week. We will continue to monitor patient in the meantime. A.m. labs. Anticipated discharge within 24 hours.] REVIEW OF SYSTEMS CONSTITUTIONAL: Denies fevers, chills, or night sweats. No unintentional weight loss reported. NEUROLOGICAL: Denies headache, amaurosis fugax, motor weakness, sensory deficit, vertigo/spinning sensation, gait abnormalities, or tremors. ENT: No hearing loss, otalgia, otorrhea, rhinitis, rhinorrhea, hoarseness, or sore throat. CARDIOVASCULAR: Denies any exertional angina, dyspnea on exertion, orthopnea, paroxysmal nocturnal dyspnea, palpitations, life-threatening arrhythmias, claudication. PULMONARY: Denies any shortness of breath, cough, phlegm/sputum, hemoptysis, pleuritic chest pain. SLEEP: Denies morning headaches, daytime somnolence or napping. Denies difficulty falling asleep, staying asleep, waking from sleep. Denies knowledge of snoring. GASTROINTESTINAL: Denies any type of dysphagia to either liquids or solids. Denies nausea, vomiting, pyrosis, early satiety, abdominal pain, diarrhea, constipation, or changes in stool consistency or caliber. Denies coffee-ground emesis, hematemesis, hematochezia, or melanotic stools. GENITOURINARY: Denies frequency, urgency, nocturia, hematuria or incontinence (Storage/Irritative symptoms.) Low urinary stream, straining to void, urinary intermittency or hesitancy, splitting of the voiding stream, terminal dribbling. ENDOCRINOLOGIC: Denies polyuria, polydipsia, polyphagia or heat/cold intolerances. HEMATOLOGIC: Denies thrombophilia/previous clots, or coagulopathy/bleeding disorders. ONCOLOGIC: Denies personal history of malignancy. DERMATOLOGIC: Denies rashes or pruritus. PSYCHIATRIC: Denies any suicidal or homicidal ideation. Denies hallucinations. PHYSICAL EXAM GENERAL APPEARANCE: The patient is awake, alert, and oriented, in no acute cardiopulmonary distress. NEUROLOGICAL: Cranial nerves II-XII grossly intact. Motor is 5/5 in bilateral upper and lower extremities proximal to distal. No sensory deficits. HEENT: Face is symmetric. Pupils are equal and reactive. Extraocular movements are intact. NECK: Supple. No JVD. No thyromegaly. No submental, submandibular, pre- /postauricular, occipital or supraclavicular lymphadenopathy. CHEST: Normal chest expansion. No Telemetry. LUNGS: Absence of any rales, rhonchi or any wheezing. CARDIOVASCULAR: Regular. S1 and S2 normal. No appreciable rubs, murmurs or gallops. ABDOMEN: Soft, nontender, and nondistended. There is no rebound, voluntary guarding, or rigidity. : Deferred. No Fonseca. EXTREMITIES: Non-edematous and not cyanotic. No clubbing. Good capillary refill. SKIN: No skin breakdown. Vital Signs (last 8hr) Date Time Temp Pulse Resp B/P (MAP) Pulse Ox O2 Delivery O2 Flow Rate FiO2 02/29/24 08:31 99.3 84 19 121/60 100 02/29/24 04:00 98.6 86 17 122/69 90 Room Air LABS: Laboratory: Test 02/29/24 05:21 02/29/24 04:10 02/28/24 13:02 Range/Units Whole Blood Glucose 76 70-110 MG/DL White Blood Count 9.1 4.8-10.8 K/uL Red Blood Count 2.38 #L 4.00-5.50 MIL/uL Hemoglobin 7.3 #L 12.0-16.0 g/dL Hematocrit 23.7 #L 36-48 % Mean Corpuscular Volume 99.6 H 79-99 fL Mean Corpuscular Hemoglobin 30.7 27.0-33.0 pg Mean Corpuscular Hemoglobin Concent 30.8 L 32.0-36.0 g/dL Red Cell Distribution Width 19.6 H 11.0-15.5 % Platelet Count 229 130-400 K/uL Mean Platelet Volume 10.8 H 7.5-10.5 fL Immature Granulocyte % (Auto) 0.5 0-1 % Neutrophils (%) (Auto) 72.1 40.0-77.0 % Lymphocytes (%) (Auto) 18.4 L 21.0-51.0 % Monocytes (%) (Auto) 5.3 3.0-13.0 % Eosinophils (%) (Auto) 3.2 0.0-8.0 % Basophils (%) (Auto) 0.5 0.0-5.0 % Neutrophils # (Auto) 6.6 1.8-7.7 K/uL Lymphocytes # (Auto) 1.7 1.0-4.8 K/uL Monocytes # (Auto) 0.5 0.1-1.0 K/uL Eosinophils # (Auto) 0.29 0.00-0.70 K/uL Basophils # (Auto) 0.05 0.00-0.20 K/uL Absolute Immature Granulocyte (auto 0.05 0-1 K/uL Nucleated Red Blood Cells 0.2 H 0.0-0.19 % Sodium Level 145 136-145 mmol/L Potassium Level 4.3 3.5-5.1 mmol/L Chloride Level 113 H 101-111 mmol/L Carbon Dioxide Level 21 21-32 mmol/L Blood Urea Nitrogen 7 7-18 mg/dL Creatinine 0.7 0.5-1.0 mg/dL Glomerular Filtration Rate Calc 115 >90 mL/min Random Glucose 87 70-105 mg/dL Hemoglobin A1c 4.7 4.0-6.0 % Estimated Average Glucose (eAG) 88 70-126 mg/dL Lactic Acid Level 1.1 0.8-2.5 mmol/L Total Calcium 7.8 L 8.5-10.1 mg/dL Magnesium Level 2.10 1.80-2.40 mg/dL Total Bilirubin 0.2 0.2-1.0 mg/dL Direct Bilirubin < 0.1 0.0-0.3 mg/dL Aspartate Amino Transf (AST/SGOT) 15 10-37 U/L Alanine Aminotransferase (ALT/SGPT) 35 12-78 U/L Alkaline Phosphatase 51 50-136 U/L Total Creatine Kinase 70 21-232 U/L B-Type Natriuretic Peptide 90 0-100 pg/mL Total Protein 5.8 L 6.0-8.3 g/dL Albumin 2.6 L 3.5-5.0 g/dL Procalcitonin < 0.05 L 0.05-0.5 ng/mL Red Blood Cell Morphology See comments Iron Level 99 50-170 mcg/dL Total Iron Binding Capacity 400 250-450 mcg/dL Percent Iron Saturation 24.7 22-44 % Serum Test, Qualitative NEGATIVE NEGATIVE Current Medications Medications (Trade) Dose Ordered Sig/[place]rence Route PRN Reason Start Time Stop Time Status Last Admin Dose Admin Acetaminophen (TYLenol 325MG TAB) 650 mg Q4H PRN PO MILD PAIN (1-3) 02/28/24 16:00 02/28/24 15:42 DC Acetaminophen (TYLenol 325MG TAB) 650 mg Q6H PRN PO MILD PAIN (1-3) 02/28/24 16:00 03/29/24 15:59 Acetaminophen (TYLenol 325MG TAB) 650 mg Q6H PRN PO TEMPERATURE GREATER THAN 101.5 02/28/24 16:00 03/29/24 15:59 Al Hydroxide/Mg Hydroxide (MAALox PLUS 30ML) 30 ml Q6H PRN PO INDIGESTION 02/28/24 16:00 03/29/24 15:59 Dextrose (D50w) 50 ml AD PRN IV HYPOGLYCEMIA PROTOCOL 02/28/24 16:00 03/29/24 15:59 Diphenhydramine HCl (BENAdryl INJ) 25 mg Q6H PRN IV SEVERE ITCHING/RASH 02/28/24 16:00 03/29/24 15:59 Famotidine (Pepcid 20mg Vial) 20 mg BID IV 02/28/24 21:00 03/29/24 20:59 02/29/24 09:32 20 MG Famotidine (Pepcid 20mg Vial) 20 mg BID PRN IV NAUSEA/VOMITING 02/28/24 16:00 02/28/24 15:42 DC Glucagon (Glucagon 1mg Kit) 1 mg AD PRN IM HYPOGLYCEMIA PROTOCOL 02/28/24 16:00 03/29/24 15:59 Guaifenesin/ Dextromethorphan (RobiTUSSin DM 200/20MG 10ML) 10 ml Q4H PRN PO COUGH 02/28/24 16:00 03/29/24 15:59 Home Med (Home Medication) (Norethindrone Acetate 1 TAB) TID PO 02/29/24 09:00 03/30/24 08:59 Home Med (Home Medication) (Norethindrone Acetate 1 TAB) TID PO 02/29/24 14:00 02/29/24 09:57 DC Home Med (Home Medication) (Relugolix/ Estradiol/ Norethi... DAILY PO 02/29/24 09:00 03/30/24 08:59 Home Med (Home Medication) (Relugolix/ Estradiol/ Norethi... DAILY PO 03/01/24 09:00 02/29/24 09:57 DC Hydralazine HCl (APRESOLine 20MG INJ) 10 mg Q6H PRN IV For:SBP above 160;DBP above 90 02/28/24 16:00 03/29/24 15:59 Insulin Human Regular (humuLIN R 100 UNIT/ML 3ML) INSULIN SLIDING SCAL... ACHS SQ 02/28/24 16:30 03/29/24 16:29 Ketorolac Tromethamine (toRADol) 15 mg Q8H PRN IV MODERATE PAIN (4-6) 02/28/24 16:00 03/04/24 15:59 Lactulose (Constulose 20gm/ 30ml Udcup) 20 gm BID PRN PO CONSTIPATION 02/28/24 16:00 03/29/24 15:59 Magnesium Sulfate 50 ml @ 0 mls/hr PROTOCOL PRN IV othere 02/28/24 16:00 03/29/24 15:59 Nitroglycerin (Nitrostat) 0.4 mg PROTOCOL PRN SL CHEST PAIN 02/28/24 16:00 03/29/24 15:59 Ondansetron HCl (zoFRAN 4MG INJ) 4 mg Q6H PRN IV NAUSEA/VOMITING 02/28/24 16:00 03/29/24 15:59 Potassium Chloride 100 ml @ 100 mls/hr AD PRN IV POTASSIUM PROTOCOL 02/28/24 16:00 03/29/24 15:59 Potassium Chloride (K-Dur/Klor-Con 20meq) 10 meq AD PRN PO POTASSIUM PROTOCOL 02/28/24 16:00 03/29/24 15:59 Potassium Chloride (KCl 10% Elixir 20meq/15ml) 10 meq AD PRN PO POTASSIUM PROTOCOL 02/28/24 16:00 03/29/24 15:59 Sodium Chloride 1,000 ml @ 100 mls/hr Q10H IV 02/28/24 16:00 03/29/24 15:59 02/28/24 16:48 100 MLS/HR Zolpidem Tartrate (AmbIEN) 5 mg HS PRN PO INSOMNIA 02/28/24 16:00 03/29/24 15:59 DIAGNOSTICS / RADIOLOGY: [ ] ASSESSMENT: [ Acute blood loss due to heavy menstruation bleed requiring two PRBC transfusion POA Multifactorial anemia due to above POA Electrolyte imbalance hyperchloremia 114 hypocalcemia menorrhagia POA adenomyosis POA Uncontrolled hypertension POA] PLAN: [ Admit to: Medical-surgical Consults: OBGYN Antibiotics: None IV fluids normal saline 100 mL/hour NEURO: Minimize central acting medications as possible. Fall Precautions. Well lighted room through the day and minimize interruptions through the night to prevent acute delirium. PULMONARY: Supplemental 02 as needed BiPAP as necessary, for respiratory distress Titrate Fio2 to keep Spo2 > or = 90% DuoNebs and CPT as needed IS hourly while awake for pulmonary hygiene Out of bed to chair as tolerated VAP Bundle Maintain aspiration precautions at all times CARDIOVASCULAR: Follow hemodynamics. Vital signs per facility protocol GI & NUTRITION: Continue nutritional support Aspirations precautions Prokinetic agents and laxatives as needed KIDNEYS & ELECTROLYTES: Strict monitoring of intake and output Daily weights Avoid nephrotoxic agents Monitor electrolytes and replace as needed Goal urine output of 30mL/hr or 0.5mL/kg/hr Medications to be dosed according to renal function. Avoid contrast if possible ENDOCRINE: Maintain blood glucose between 100-180 at all times. Insulin sliding scale for blood glucose management Hypoglycemia and hyperglycemia protocol in place INFECTIOUS DISEASE: Trend temperature, WBC and procalcitonin level Follow cultures, deescalate antibiotics as soon as possible. Panculture if new onset fever HEMATOLOGY & COAGULATION: Monitor H&H. Keep Hgb > 7 Transfuse 1 unit of PRBC for Hgb < 7 Transfuse 1 pack of platelets of platelets < 20, 000 Watch for any signs and symptoms of bleeding SKIN: Pressure ulcer prevention per facility protocol Specialty mattress as needed Treatment plan discussed with patient and family at the bedside Medications to be reconciled once obtained by patient and/or family and available to be reconciled in computer p.r.n. medication for pain nausea and vomiting Questions were answered We will continue to monitor the patient closely Disaster Recovery Analyst for disposition Rehab: PT/OT GI: PPI DVT: SCD's Code Status: Full Resuscitation Disposition: TBD Prognosis: Guarded ] ATTESTATION BY PHYSICIAN I have seen and examined the patient. I reviewed the documentation, medical decision making, and treatment plan as noted by the mid-level provider above. I agree with the findings and plan of care. MD PRANAV Treviño [facility] Feb 29, 2024 10:55
[2024-02-29 11:57] VITALS: BP 131/63; PULSE 79; RESP 16; TEMP 98.3
[2024-02-29] MEDS: NORETHINDRONE PO SCH (13:29)
[2024-02-29] MEDS: RELUGOLIX PO SCH (13:29)
[2024-02-29] MEDS: ESTRADIOL PO SCH (13:29)
[2024-02-29] MEDS ORDERED: NORETHINDRONE ACETATE PO SCH (14:00)
--- NOTE | 2024-02-29 14:16 | NUR ---
DCP: HOME Sw met with pt who lives at home with her parents- mother Milvia Singh [phone]. Pt reports that she is able to complete ADLS on her own, uses no DME or in home care services. PCP is Monica Nixon and uses [facility] for rx. Pt denies dc needs and will return home with parents. Addendum: 02/29/24 at 1419 by DANY PRICE Amended: Links added.
--- NOTE | 2024-02-29 14:45 | NUR ---
DISCHARGE: PER MD ORDERS PT READY TO GO HOME, PT WILL FOLLOW UP WITH PCP IN 3-5 DAYS, PT NEED TO FOLLOW UP WITH DR SHAUN MD BY , 03/07; , 03/08 OR JACEY 03/12 PER MD. PT WILL CONTINUE WITH HOME MEDS PRIOR TO HOSPITALIZATION. IV REMOVED, TIP INTACT, NO S/S OF INFECTION, PT TOLERATED PROCEDURE.
[2024-02-29 16:02] VITALS: BP 115/60; PULSE 84; RESP 18; TEMP 99
[2024-02-29 16:09] LABS: BASOPHILS # (AUTO) 0.04 K/uL (0.00-0.20); BASOPHILS % (AUTO) 0.6 % (0.0-5.0); EOSINOPHILS # (AUTO) 0.18 K/uL (0.00-0.70); EOSINOPHILS % (AUTO) 2.5 % (0.0-8.0); HEMATOCRIT 25.3 % (36-48); IMMATURE GRANULOCYTE ABSOLUTE 0.04 K/uL (0-1); LYMPHOCYTES # (AUTO) 1.2 K/uL (1.0-4.8); LYMPHOCYTES % (AUTO) 17.1 % (21.0-51.0); MEAN CORPUSCULAR HEMOGLOBIN 30.6 pg (27.0-33.0); MEAN CORPUSCULAR HGB CONC 30.4 g/dL (32.0-36.0); MEAN CORPUSCULAR VOLUME 100.4 fL (79-99); MONOCYTES # (AUTO) 0.3 K/uL (0.1-1.0); MONOCYTES % (AUTO) 4.8 % (3.0-13.0); NEUTROPHILS # (AUTO) 5.3 K/uL (1.8-7.7); NEUTROPHILS % (AUTO) 74.4 % (40.0-77.0); PLATELET COUNT (AUTO) 237 K/uL (130-400); RED BLOOD CELL COUNT(AUTO) 2.52 MIL/uL (4.00-5.50); WHITE BLOOD COUNT (AUTO) 7.2 K/uL (4.8-10.8)
[2024-02-29 16:29] LABS: ALBUMIN 2.8 g/dL (3.5-5.0); BILIRUBIN,TOTAL 0.4 mg/dL (0.2-1.0); CREATININE 0.8 mg/dL (0.5-1.0); MAGNESIUM 2.3 mg/dL (1.80-2.40); POTASSIUM 4.5 mmol/L (3.5-5.1)
[2024-03-01] MEDS ORDERED: NORETHINDRONE PO SCH (09:00)
[2024-03-01] MEDS ORDERED: RELUGOLIX PO SCH (09:00)
[2024-03-01] MEDS ORDERED: ESTRADIOL PO SCH (09:00)
--- NOTE | 2024-03-01 12:51 | PN ---
[facility] PROGRESS NOTE Date of Service: Mar 01, 2024 Time of Service: 12:[address] Treviño SUBJECTIVE: [ 02/27 Patient is 38 years old female with a past medical history of menorrhagia and adenomyosis who came to emergency department with abnormal labs from her PCP office. Patient stated that for the past four weeks she has been having very heavy vaginal bleed and she decided to go to her PCP yesterday were the labs were taken. Today in the morning when patient called in to PCP's office she was told that her hemoglobin was very low and they either recommend for her to go to emergency department for blood transfusion/evaluation ortho come to the office to start the iron infusion. Patient stated that since she has been having trouble breathing and she feels very dizzy and weak she decided to come to emergency department. At the emergency department patient's hemoglobin was 5.2 she will receive 2 units of PRBC She had a D&C done in the past by Dr. Salguero to try and control her symptoms however that did not improve any of her symptoms. She has a hysterectomy scheduled for March 28, [address] Salguero. Patient is also scheduled for hysterectomy March 28, 2024. Patient will be admitted under hospitalist care for further evaluation. OBGYN was consulted. 02/28 patient was seen by nurse practitioner and physician during rounding in room 313 comfortably lying in the bed. Patient was evaluated by OBGYN and at this moment they recommended one PRBC and also to start patient on NORETHINDRONE 5 MG THREE PER DAY AND MYFEMBREE ONCE PER DAY. As long as the patient will not be bleeding heavily she can be dismissed to go home and follow-up with OBGYN later in the week. We will continue to monitor patient in the meantime. A.m. labs. Anticipated discharge within 24 hours. 03/01 nurse practitioner was rounding with the physician and realized that the patient was discharged yesterday 03/01/[address] Salguero by OBGYN. We will transfer primary care under Dr. Salguero and we will remain as a technical support consultant physicians.] REVIEW OF SYSTEMS CONSTITUTIONAL: Denies fevers, chills, or night sweats. No unintentional weight loss reported. NEUROLOGICAL: Denies headache, amaurosis fugax, motor weakness, sensory deficit, vertigo/spinning sensation, gait abnormalities, or tremors. ENT: No hearing loss, otalgia, otorrhea, rhinitis, rhinorrhea, hoarseness, or sore throat. CARDIOVASCULAR: Denies any exertional angina, dyspnea on exertion, orthopnea, paroxysmal nocturnal dyspnea, palpitations, life-threatening arrhythmias, claudication. PULMONARY: Denies any shortness of breath, cough, phlegm/sputum, hemoptysis, pleuritic chest pain. SLEEP: Denies morning headaches, daytime somnolence or napping. Denies difficulty falling asleep, staying asleep, waking from sleep. Denies knowledge of snoring. GASTROINTESTINAL: Denies any type of dysphagia to either liquids or solids. Denies nausea, vomiting, pyrosis, early satiety, abdominal pain, diarrhea, c onstipation, or changes in stool consistency or caliber. Denies coffee-ground emesis, hematemesis, hematochezia, or melanotic stools. GENITOURINARY: Denies frequency, urgency, nocturia, hematuria or incontinence (Storage/Irritative symptoms.) Low urinary stream, straining to void, urinary intermittency or hesitancy, splitting of the voiding stream, terminal dribbling. ENDOCRINOLOGIC: Denies polyuria, polydipsia, polyphagia or heat/cold intolerances. HEMATOLOGIC: Denies thrombophilia/previous clots, or coagulopathy/bleeding disorders. ONCOLOGIC: Denies personal history of malignancy. DERMATOLOGIC: Denies rashes or pruritus. PSYCHIATRIC: Denies any suicidal or homicidal ideation. Denies hallucinations. PHYSICAL EXAM GENERAL APPEARANCE: The patient is awake, alert, and oriented, in no acute ca rdiopulmonary distress. NEUROLOGICAL: Cranial nerves II-XII grossly intact. Motor is 5/5 in bilateral upper and lower extremities proximal to distal. No sensory deficits. HEENT: Face is symmetric. Pupils are equal and reactive. Extraocular movements are intact. NECK: Supple. No JVD. No thyromegaly. No submental, submandibular, pre- /postauricular, occipital or supraclavicular lymphadenopathy. CHEST: Normal chest expansion. No Telemetry. LUNGS: Absence of any rales, rhonchi or any wheezing. CARDIOVASCULAR: Regular. S1 and S2 normal. No appreciable rubs, murmurs or gallops. ABDOMEN: Soft, nontender, and nondistended. There is no rebound, voluntary guarding, or rigidity. : Deferred. No Fonseca. EXTREMITIES: Non-edematous and not cyanotic. No clubbing. Good capillary refill. SKIN: No skin breakdown. LABS: Laboratory: Test 02/29/24 16:04 02/29/24 15:51 02/29/24 04:10 02/28/24 13:02 Range/Units White Blood Count 7.2 4.8-10.8 K/uL Red Blood Count 2.52 L 4.00-5.50 MIL/uL Hemoglobin 7.7 L 12.0-16.0 g/dL Hematocrit 25.3 L 36-48 % Mean Corpuscular Volume 100.4 H 79-99 fL Mean Corpuscular Hemoglobin 30.6 27.0-33.0 pg Mean Corpuscular Hemoglobin Concent 30.4 L 32.0-36.0 g/dL Red Cell Distribution Width 19.0 H 11.0-15.5 % Platelet Count 237 130-400 K/uL Mean Platelet Volume 10.9 H 7.5-10.5 fL Immature Granulocyte % (Auto) 0.6 0-1 % Neutrophils (%) (Auto) 74.4 40.0-77.0 % Lymphocytes (%) (Auto) 17.1 L 21.0-51.0 % Monocytes (%) (Auto) 4.8 3.0-13.0 % Eosinophils (%) (Auto) 2.5 0.0-8.0 % Basophils (%) (Auto) 0.6 0.0-5.0 % Neutrophils # (Auto) 5.3 1.8-7.7 K/uL Lymphocytes # (Auto) 1.2 1.0-4.8 K/uL Monocytes # (Auto) 0.3 0.1-1.0 K/uL Eosinophils # (Auto) 0.18 0.00-0.70 K/uL Basophils # (Auto) 0.04 0.00-0.20 K/uL Absolute Immature Granulocyte (auto 0.04 0-1 K/uL Nucleated Red Blood Cells 0.0 0.0-0.19 % Sodium Level 141 136-145 mmol/L Potassium Level 4.5 3.5-5.1 mmol/L Chloride Level 111 101-111 mmol/L Carbon Dioxide Level 25 21-32 mmol/L Blood Urea Nitrogen 7 7-18 mg/dL Creatinine 0.8 0.5-1.0 mg/dL Glomerular Filtration Rate Calc 98 >90 mL/min Random Glucose 122 H 70-105 mg/dL Total Calcium 8.0 L 8.5-10.1 mg/dL Magnesium Level 2.30 1.80-2.40 mg/dL Total Bilirubin 0.4 # 0.2-1.0 mg/dL Aspartate Amino Transf (AST/SGOT) 13 10-37 U/L Alanine Aminotransferase (ALT/SGPT) 36 12-78 U/L Alkaline Phosphatase 52 50-136 U/L Total Protein 6.0 6.0-8.3 g/dL Albumin 2.8 L 3.5-5.0 g/dL Whole Blood Glucose 123 H 70-110 MG/DL Hemoglobin A1c 4.7 4.0-6.0 % Estimated Average Glucose (eAG) 88 70-126 mg/dL Lactic Acid Level 1.1 0.8-2.5 mmol/L Direct Bilirubin < 0.1 0.0-0.3 mg/dL Total Creatine Kinase 70 21-232 U/L B-Type Natriuretic Peptide 90 0-100 pg/mL Procalcitonin < 0.05 L 0.05-0.5 ng/mL Red Blood Cell Morphology See comments Iron Level 99 50-170 mcg/dL Total Iron Binding Capacity 400 250-450 mcg/dL Percent Iron Saturation 24.7 22-44 % Serum Test, Qualitative NEGATIVE NEGATIVE Current Medications Medications (Trade) Dose Ordered Sig/[place] Route PRN Reason Start Time Stop Time Status Last Admin Dose Admin Acetaminophen (TYLenol 325MG TAB) 650 mg Q4H PRN PO MILD PAIN (1-3) 02/28/24 16:00 02/28/24 15:42 DC Acetaminophen (TYLenol 325MG TAB) 650 mg Q6H PRN PO TEMPERATURE GREATER THAN 101.5 02/28/24 16:00 02/29/24 17:45 DC Acetaminophen (TYLenol 325MG TAB) 650 mg Q6H PRN PO MILD PAIN (1-3) 02/28/24 16:00 02/29/24 17:46 DC Al Hydroxide/Mg Hydroxide (MAALox PLUS 30ML) 30 ml Q6H PRN PO INDIGESTION 02/28/24 16:00 02/29/24 17:46 DC Dextrose (D50w) 50 ml AD PRN IV HYPOGLYCEMIA PROTOCOL 02/28/24 16:00 02/29/24 17:45 DC Diphenhydramine HCl (BENAdryl INJ) 25 mg Q6H PRN IV SEVERE ITCHING/RASH 02/28/24 16:00 02/29/24 17:45 DC Famotidine (Pepcid 20mg Vial) 20 mg BID IV 02/28/24 21:00 02/29/24 17:46 DC 02/29/24 09:32 20 MG Famotidine (Pepcid 20mg Vial) 20 mg BID PRN IV NAUSEA/VOMITING 02/28/24 16:00 02/28/24 15:42 DC Glucagon (Glucagon 1mg Kit) 1 mg AD PRN IM HYPOGLYCEMIA PROTOCOL 02/28/24 16:00 02/29/24 17:45 DC Guaifenesin/ Dextromethorphan (RobiTUSSin DM 200/20MG 10ML) 10 ml Q4H PRN PO COUGH 02/28/24 16:00 02/29/24 17:46 DC Home Med (Home Medication) (Norethindrone Acetate 1 TAB) TID PO 02/29/24 09:00 02/29/24 17:46 DC 02/29/24 14:00 1 EACH Home Med (Home Medication) (Norethindrone Acetate 1 TAB) TID PO 02/29/24 14:00 02/29/24 09:57 DC Home Med (Home Medication) (Relugolix/ Estradiol/ Norethi... DAILY PO 02/29/24 09:00 02/29/24 17:46 DC 02/29/24 13:29 1 EACH Home Med (Home Medication) (Relugolix/ Estradiol/ Norethi... DAILY PO 03/01/24 09:00 02/29/24 09:57 DC Hydralazine HCl (APRESOLine 20MG INJ) 10 mg Q6H PRN IV For:SBP above 160;DBP above 90 02/28/24 16:00 02/29/24 17:46 DC Insulin Human Regular (humuLIN R 100 UNIT/ML 3ML) INSULIN SLIDING SCAL... ACHS SQ 02/28/24 16:30 02/29/24 17:45 DC Ketorolac Tromethamine (toRADol) 15 mg Q8H PRN IV MODERATE PAIN (4-6) 02/28/24 16:00 02/29/24 17:46 DC Lactulose (Constulose 20gm/ 30ml Udcup) 20 gm BID PRN PO CONSTIPATION 02/28/24 16:00 02/29/24 17:46 DC Magnesium Sulfate 50 ml @ 0 mls/hr PROTOCOL PRN IV othere 02/28/24 16:00 02/29/24 17:45 DC Nitroglycerin (Nitrostat) 0.4 mg PROTOCOL PRN SL CHEST PAIN 02/28/24 16:00 02/29/24 17:46 DC Ondansetron HCl (zoFRAN 4MG INJ) 4 mg Q6H PRN IV NAUSEA/VOMITING 02/28/24 16:00 02/29/24 17:46 DC Potassium Chloride 100 ml @ 100 mls/hr AD PRN IV POTASSIUM PROTOCOL 02/28/24 16:00 02/29/24 17:45 DC Potassium Chloride (K-Dur/Klor-Con 20meq) 10 meq AD PRN PO POTASSIUM PROTOCOL 02/28/24 16:00 02/29/24 17:45 DC Potassium Chloride (KCl 10% Elixir 20meq/15ml) 10 meq AD PRN PO POTASSIUM PROTOCOL 02/28/24 16:00 02/29/24 17:45 DC Sodium Chloride 1,000 ml @ 100 mls/hr Q10H IV 02/28/24 16:00 02/29/24 17:46 DC 02/29/24 13:29 100 MLS/HR Zolpidem Tartrate (AmbIEN) 5 mg HS PRN PO INSOMNIA 02/28/24 16:00 02/29/24 17:46 DC DIAGNOSTICS / RADIOLOGY: [ ] ASSESSMENT: [ Acute blood loss due to heavy menstruation bleed requiring two PRBC transfusion POA Multifactorial anemia due to above POA Electrolyte imbalance hyperchloremia 114 hypocalcemia menorrhagia POA adenomyosis POA Uncontrolled hypertension POA] ATTESTATION BY PHYSICIAN I have seen and examined the patient. I reviewed the documentation, medical decision making, and treatment plan as noted by the mid-level provider above. I agree with the findings and plan of care. MD PRANAV Treviño [facility] Mar 01, 2024 12:51
== END 2024-02-29 17:45 | disposition home or self-care (01) | DRG 760 ==
LOC: EDH 12:24 → EDHIP 12:25 → 3CH 23:29
PROVIDERS: ADMIT Obstetrics & Gynecology; ATTEND Obstetrics & Gynecology
PROC: 30233N1 Transfusion of Nonautologous Red Blood Cells into Peripheral Vein, Percutaneous Approach (ICD-10-PCS; principal; 2024-02-28)
DX: N92.0 Excessive and frequent menstruation with regular cycle (principal); D62 Acute posthemorrhagic anemia; E83.51 Hypocalcemia; I10 Essential (primary) hypertension; E87.8 Other disorders of electrolyte and fluid balance, not elsewhere classified; N80.03 Adenomyosis of the uterus; Z90.710 Acquired absence of both cervix and uterus; Z79.899 Other long term (current) drug therapy
CPT/HCPCS: 36415; 80048; 80053; 80076; 82550; 82948; 83036; 83540; 83550; 83605; 83735; 83880; 84145; 84703; 85025; 86850; 86900; 86901; 86923; 99285; G0378; J3490; P9016

== ENCOUNTER 2024-03-07 11:55 | Emergency (ER) | payer SELFPAY ==
[~2024-03-07] VITALS: Ht 175.3 cm; Wt 113.4 kg
[~2024-03-07 11:55] MED LIST changes: +IBUP-2784 PO; +NORE5TAB7 PO; +RELU1TAB PO
--- NOTE | 2024-03-07 12:59 | ERN ---
General Chief Complaint: Vaginal Bleeding Stated Complaint: ANEMIA Time Seen by MD: 11:56 Time Seen by Midlevel: 11:56 Source: patient History of Present Illness Initial Comments Patient is a 38-year-old female with a past medical history of adenomyosis presenting to the emergency department with vaginal bleeding and increased generalized weakness. Patient was seen in our emergency department on February 27 for hemoglobin of 5.6. She was transfused2 units of blood and admitted for further observation and management. She reports being discharged earlier this week however today she developed some generalized weakness and wanted her hemoglobin checked again. She reports continued vaginal bleeding which has been common for her given her history of adenomyosis. She already has an appointment scheduled for hysterectomy next month but does not want to wait that long. No other concerns reported at this time. Allergies: Coded Allergies: No Known Drug Allergies (Unverified Allergy, Unknown, 08/29/23) Home Meds Reported Medications Ibuprofen (Ibuprofen 200 mg Tablet) 200 Mg Tablet, 3 TAB PO TID for pain or fever for 5 Days, #40 TAB 0 Refills 02/28/24 Relugolix/Estradiol/Norethindr (Myfembree 40 mg-1 mg-0.5 mg Tb) 40 Mg-1 Mg-0.5 Mg Tablet, 1 EACH PO DAILY, TAB 02/28/24 Norethindrone Acetate (Norethindrone Acetate) 5 Mg Tablet, 1 TAB PO TID for 30 Days, #30 TAB 0 Refills 02/28/24 Ferrous Sulfate (Iron) 325 Mg (65 Mg Iron) Tablet, 325 MG PO DAILY, TAB 08/29/23 Cholecalciferol (Vitamin D3) 1,250 Mcg (41922 Unit) Cap, 18188 UNITS PO MONDAYS, CAP 08/29/23 [Severe Channing/Cough] No Conflict Check, 20 ML PO AD PRN for COUGH 08/29/23 Cetirizine HCl (Cetirizine HCl) 10 Mg Tablet, 10 MG PO AM, TAB 08/29/23 Past Medical History Past Medical History: No Pertinent History, Other Medical History Other: ADENOMYOSIS Past Surgical History: Other Surgical History Other: D&C Female( History) LMP: Jan 30, 2024 : 0 Para: 0 ROS Dictation CONSTITUTIONAL: Negative except for HPI HEAD/FACE: Negative except for HPI EENT: Negative except for HPI RESPIRATORY: Negative except for HPI GASTROINTESTINAL/ABDOMINAL: Negative except for HPI GENITOURINARY: Negative except for HPI MUSCULOSKELETAL: Negative except for HPI INTEGUMENTARY: Negative except for HPI NEUROLOGICAL/PSYCH: Negative except for HPI HEMATOLOGIC/LYMPHATIC: Negative except for HPI All Systems Negative, Except as noted above. 13 point review of systems assessed and all negative except for above. Physical Exam Physical Exam Dictation Vital Signs reviewed General Appearance: Alert, oriented x 3, no acute distress, well developed, nourished. Head and Face: non-traumatic. Eyes: PERRL, pink conjunctivas, eyelid no trauma, anterior chamber with arcus senilis. Ears: Pinnas intact and no signs of trauma or erythema ear canals clear and no discharge TM no erythema Nose: No discharge, no bleeding. Oropharynx: Mouth normal, tongue pink, pharynx clear,no erythema, tonsils no exudates, no abscesses noted, mucous membrane moist Neck: Supple, non-tender, no thyromegaly, no masses, no JVD, no bruits Breast:Deferred Chest:No tenderness, no crepitus, no paradoxical movement, no retractions Lungs:Clear, well-ventilated, symmetric, no rales, no wheezing, no rhonchi, no stridor, good breath sounds bilaterally Heart: Regular rate, regular rhythm, no murmur, no gallops Vascular: no peripheral edema, Abdomen: Soft, positive bowel sounds, nondistended, no guarding, nontender, no rebound, no masses no hepatomegaly, no splenomegaly, no Lynn's sign, no hernias. Rectal: Deferred Genital: Deferred Neurological: Normal speech, motor function intact, sensory function intact Musculoskeletal: Neck nontender, full range of motion, back nontender, full range of motion, Extremities: nontender, full range of motion Skin: Color pink, dry, no turgor, no rash, no lacerations, no abrasions, no contusions. Lymphatic: Deferred Results Laboratory and Microbiology Lab and Micro Result Laboratory Tests Test 03/07/24 13:24 White Blood Count 6.9 K/uL (4.8-10.8) Red Blood Count 3.01 MIL/uL (4.00-5.50) L Hemoglobin 9.0 g/dL (12.0-16.0) L Hematocrit 29.9 % (36-48) L Mean Corpuscular Volume 99.3 fL (79-99) H Mean Corpuscular Hemoglobin 29.9 pg (27.0-33.0) Mean Corpuscular Hemoglobin Concent 30.1 g/dL (32.0-36.0) L Red Cell Distribution Width 16.3 % (11.0-15.5) H Platelet Count 324 K/uL (130-400) Mean Platelet Volume 10.9 fL (7.5-10.5) H Immature Granulocyte % (Auto) 0.6 % (0-1) Neutrophils (%) (Auto) 68.8 % (40.0-77.0) Lymphocytes (%) (Auto) 20.4 % (21.0-51.0) L Monocytes (%) (Auto) 6.9 % (3.0-13.0) Eosinophils (%) (Auto) 2.3 % (0.0-8.0) Basophils (%) (Auto) 1.0 % (0.0-5.0) Neutrophils # (Auto) 4.7 K/uL (1.8-7.7) Lymphocytes # (Auto) 1.4 K/uL (1.0-4.8) Monocytes # (Auto) 0.5 K/uL (0.1-1.0) Eosinophils # (Auto) 0.16 K/uL (0.00-0.70) Basophils # (Auto) 0.07 K/uL (0.00-0.20) Absolute Immature Granulocyte (auto 0.04 K/uL (0-1) Nucleated Red Blood Cells 0.0 % (0.0-0.19) Prothrombin Time 10.2 SEC (9.6-11.6) Prothromb Time International Ratio <= 0.93 (0.85-1.15) Sodium Level 143 mmol/L (136-145) Potassium Level 4.2 mmol/L (3.5-5.1) Chloride Level 110 mmol/L (101-111) Carbon Dioxide Level 25 mmol/L (21-32) Blood Urea Nitrogen 7 mg/dL (7-18) Creatinine 0.8 mg/dL (0.5-1.0) Glomerular Filtration Rate Calc 98 mL/min (>90) Random Glucose 105 mg/dL (70-105) Total Calcium 8.5 mg/dL (8.5-10.1) Serum Test, Qualitative NEGATIVE (NEGATIVE) Labs Reviewed?: Yes MDM MDM: Patient is a 38-year-old female with a past medical history of adenomyosis presenting to the emergency department with vaginal bleeding and increased generalized weakness. Patient was seen in our emergency department on February 27 for hemoglobin of 5.6. She was transfused2 units of blood and admitted for further observation and management. She reports being discharged earlier this week however today she developed some generalized weakness and wanted her hemoglobin checked again. She reports continued vaginal bleeding which has been common for her given her history of adenomyosis. She already has an appointment scheduled for hysterectomy next month but does not want to wait that long. No other concerns reported at this time. On physical examination patient is in no acute respiratory distress. Vital signs are stable. Patient is nontoxic appearing. Her CBC shows a normal white blood cell count. Her hemoglobin is 9.0. Her chemistries are unremarkable. There was no need for a blood transfusion at this time. Patient already has a hysterectomy scheduled for next month. Patient was advised surgery or attempt to contact Dr. Salguero for a sooner surgery given her dysfunctional uterine bleeding. The patient is stable for discharge at this time. Return precautions discussed. Differential diagnosis: Anemia, electrolyte abnormality, dehydration There are no social concerns with this patient. Prescription drug management Prescriptions will include: None Medical management and examination interpretation discussions were had by me with other qualified healthcare professionals as indicated for the patient's care. ED Course Orders Procedure Category Date Status Time Basic Metabolic Panel LAB 03/07/24 Complete 12:07 Cbc With Differential LAB 03/07/24 In Process 12:07 Type And Screen BBK 03/07/24 Logged 12:07 Testing, LAB 03/07/24 Complete Serum Hcg 12:07 Pt And Ptt LAB 03/07/24 In Process 12:07 Vital Signs Date Time Temp Pulse Resp B/P (MAP) Pulse Ox O2 Delivery O2 Flow Rate FiO2 03/07/24 12:03 98.6 104 20 143/87 99 Room Air 0 DX & DISP Disposition: Discharge Departure Impression: Primary Impression: Abnormal uterine bleeding due to adenomyosis Additional Impression: Anemia Condition: Stable Additional Instructions: Your blood work today shows a hemoglobin of 9.0. The remainder of your labs are unremarkable. You will need to follow up with Dr. Salguero and potentially try to have your surgery scheduled sooner if possible. No need for blood transfusion at this time. Follow up with primary care doctor in 2-3 days for repeat evaluation. Return to the ER for any new or worsening symptoms. Referrals: AMARJIT GUTIERREZ (PCP) Time of Disposition: 14:09 I have reviewed the case, and I agree with, Diagnosis and Plan I performed the substantive portion of the visit. I have reviewed and personally made and approve the management plan that is documented in the note by myself or the [facility]. I acknowledge for responsibility for the patient's management plan. RAIMUNDO CEDEÑO Mar 07, 2024 12:59
[2024-03-07 13:50] LABS: BASOPHILS # (AUTO) 0.07 K/uL (0.00-0.20); EOSINOPHILS # (AUTO) 0.16 K/uL (0.00-0.70); EOSINOPHILS % (AUTO) 2.3 % (0.0-8.0); HEMATOCRIT 29.9 % (36-48); IMMATURE GRANULOCYTE ABSOLUTE 0.04 K/uL (0-1); LYMPHOCYTES # (AUTO) 1.4 K/uL (1.0-4.8); LYMPHOCYTES % (AUTO) 20.4 % (21.0-51.0); MEAN CORPUSCULAR HEMOGLOBIN 29.9 pg (27.0-33.0); MEAN CORPUSCULAR HGB CONC 30.1 g/dL (32.0-36.0); MEAN CORPUSCULAR VOLUME 99.3 fL (79-99); MONOCYTES # (AUTO) 0.5 K/uL (0.1-1.0); MONOCYTES % (AUTO) 6.9 % (3.0-13.0); NEUTROPHILS # (AUTO) 4.7 K/uL (1.8-7.7); NEUTROPHILS % (AUTO) 68.8 % (40.0-77.0); PLATELET COUNT (AUTO) 324 K/uL (130-400); RED BLOOD CELL COUNT(AUTO) 3.01 MIL/uL (4.00-5.50); RED CELL DISTRIBUTION WIDTH 16.3 % (11.0-15.5); WHITE BLOOD COUNT (AUTO) 6.9 K/uL (4.8-10.8)
[2024-03-07 13:54] LABS: CREATININE 0.8 mg/dL (0.5-1.0); POTASSIUM 4.2 mmol/L (3.5-5.1)
[2024-03-07 14:07] LABS: INR <= 0.93 (0.85-1.15); PROTHROMBIN TIME 10.2 SEC (9.6-11.6)
[2024-03-07 14:09] LABS: PARTIAL THROMBOPLASTIN TIME 24.3 SEC (26.3-35.5)
[2024-03-07 14:17] VITALS: BP 140/80; PULSE 100; RESP 16; TEMP 98.6; O2SAT 98
== END 2024-03-07 14:29 | disposition home or self-care (01) ==
LOC: EDH 11:55
DX: O26.891 Other specified pregnancy related conditions, first trimester (principal); N93.9 Abnormal uterine and vaginal bleeding, unspecified; O99.011 Anemia complicating pregnancy, first trimester; D64.9 Anemia, unspecified; Z79.1 Long term (current) use of non-steroidal anti-inflammatories (NSAID); Z79.3 Long term (current) use of hormonal contraceptives; Z3A.01 Less than 8 weeks gestation of pregnancy
CPT/HCPCS: 36415; 80048; 84703; 85025; 85610; 85730; 86850; 86900; 86901; 99283